=== PATIENT | male | born 1965 | race Caucasian/White ===

== ENCOUNTER → 2016-10-14 | Outpatient (REF) | payer OTHER ==
[2016-10-14 13:38] LABS: MEAN CORPUSCULAR HEMOGLOBIN 33.2 pg (27.0-33.0); MEAN CORPUSCULAR HGB CONC 32.9 g/dl (32.0-36.5); MEAN CORPUSCULAR VOLUME 101.1 fl (80.0-96.0); RED CELL DISTRIBUTION WIDTH 12.6 % (11.5-14.5); WHITE BLOOD COUNT 10.2 K/mm3 (4.0-10.0)
[2016-10-14 14:17] LABS: ALBUMIN/GLOBULIN RATIO 1.18 (1.00-1.93); ALKALINE PHOSPHATASE 76 U/L (45-117); ALT/SGPT 22 U/L (12-78); ANION GAP 5 MEQ/L (8-16); AST/SGOT 11 U/L (15-37); BILIRUBIN,TOTAL 0.2 MG/DL (0.2-1.0); BLOOD UREA NITROGEN 15 MG/DL (7-18); CALCIUM LEVEL 9.6 MG/DL (8.5-10.1); CARBON DIOXIDE LEVEL 32 MEQ/L (21-32); CHLORIDE LEVEL 107 MEQ/L (98-107); CHOLESTEROL LEVEL 183 MG/DL (<200); GLOMERULAR FILTRATION RATE > 60.0 (>56); GLUCOSE, FASTING 100 MG/DL (70-105); POTASSIUM SERUM 4.4 MEQ/L (3.5-5.1); SODIUM LEVEL 144 MEQ/L (136-145); TOTAL PROTEIN 7.4 GM/DL (6.4-8.2); TRIGLYCERIDES LEVEL 104 MG/DL (<150)
== END ==
LOC: M LAB REF 12:41
PROVIDERS: ATTEND Nurse Practitioner Family
DX: Z12.5 Encounter for screening for malignant neoplasm of prostate (principal); I10 Essential (primary) hypertension; R45.86 Emotional lability; E78.5 Hyperlipidemia, unspecified
CPT/HCPCS: 80053; 80061; 82306; 84443; 85027; G0103

== ENCOUNTER 2016-12-06 21:06 | Emergency (ER) | payer OTHER ==
[~2016-12-06] VITALS: Ht 177.8 cm; Wt 70.0 kg
[2016-12-06 22:03] LABS: BASO # 0.1 K/mm3 (0.0-0.2); BASO % 0.8 % (0.0-1.0); EOS # 0.1 K/mm3 (0.0-0.50); LARGE UNSTAINED CELL # 0.1 K/mm3 (0.0-0.4); LARGE UNSTAINED CELL % 1.4 % (0.0-4.0); LYMPH # 2.7 K/mm3 (1.5-4.5); LYMPH % 30.9 % (24.0-44.0); MEAN CORPUSCULAR HEMOGLOBIN 32.1 pg (27.0-33.0); MEAN CORPUSCULAR HGB CONC 33.8 g/dl (32.0-36.5); MEAN CORPUSCULAR VOLUME 95.1 fl (80.0-96.0); MONO # 0.3 K/mm3 (0.0-0.8); MONO % 3.3 % (0.0-5.0); NEUTROPHILS # 5.2 K/mm3 (1.8-7.7); NEUTROPHILS % 62.6 % (36.0-66.0); PLATELET COUNT, AUTOMATED 329 k/mm3 (150-450); RED CELL DISTRIBUTION WIDTH 13.4 % (11.5-14.5); WHITE BLOOD COUNT 8.2 K/mm3 (4.0-10.0)
[2016-12-06 22:33] LABS: ANION GAP 11 MEQ/L (8-16); BLOOD UREA NITROGEN 13 MG/DL (7-18); CALCIUM LEVEL 8.8 MG/DL (8.5-10.1); CARBON DIOXIDE LEVEL 24 MEQ/L (21-32); CHLORIDE LEVEL 105 MEQ/L (98-107); CREATININE FOR GFR 0.86 MG/DL (0.70-1.30); GLOMERULAR FILTRATION RATE > 60.0 (>56); GLUCOSE, FASTING 97 MG/DL (70-105); POTASSIUM SERUM 3.4 MEQ/L (3.5-5.1); SODIUM LEVEL 140 MEQ/L (136-145)
[2016-12-06 22:35] VITALS: BP 133/85
--- NOTE | 2016-12-06 22:50 | REPUSA ---
CT of the head Clinical history: Trauma. Technique: Multiple axial CT images were obtained through the head without administration of contrast . Comparison: 05/04/2016. Findings: The ventricles and sulci are symmetric bilaterally. There is no evidence of acute hemorrhag e or infarct. There is no midline shift, mass effect, or extra-axial fluid collection. The osseous st ructures are unremarkable.. There is a small air fluid level in the right maxillary sinus. The other visualized paranasal sinuses and mastoid air cells are clear. Impression: No acute intracranial abnormality. Right maxillary sinusitis.
--- NOTE | 2016-12-06 22:50 | REPUSA ---
CT of the cervical spine Clinical history: Pain. Technique: Multiple axial CT images were obtained through the cervical spine without administration o f contrast. Coronal and sagittal 3-D reconstructed images were also obtained. Comparison: None. Findings: The cervical vertebral bodies are in satisfactory positioning and alignment. No fractures or dislocat ions are demonstrated. The odontoid process is intact. Intervertebral disc space is narrowed at C6/C7 with small disc osteophyte complex. There is no evidence of facet subluxation. The neural foramen ap pear grossly patent. The cervical cranial junction is intact. The cervical spinal canal demonstrates normal caliber and contour without evidence of spinal stenosis. The surrounding soft tissues are with in normal limits. Impression: No acute fracture or traumatic injury. Mild degenerative disc disease at C6/C7 with small disc osteophyte complex.
--- NOTE | 2016-12-07 07:41 | REP ---
Clinical: Trauma . Comparison: 11/04/2014 . Technique: PA and lateral. Findings: The mediastinum and cardiac silhouette are normal. The lung breaux are clear and without acute consolidation, effusion, or pneumothorax. The skeletal structures are intact and normal. Impression: 1. No acute cardiopulmonary process. Signed by Bandar Lucio MD 12/07/2016 07:32 A
== END 2016-12-06 23:20 | disposition left against medical advice (07) ==
LOC: EDBD 21:06 → M ED 21:06
DX: F10.129 Alcohol abuse with intoxication, unspecified (principal); I10 Essential (primary) hypertension; F17.210 Nicotine dependence, cigarettes, uncomplicated; E78.9 Disorder of lipoprotein metabolism, unspecified

== ENCOUNTER → 2016-12-16 | Outpatient (REF) | payer OTHER | LOC: M LAB REF 18:20 | PROVIDERS: ATTEND Nurse Practitioner Family | DX: M10.071 Idiopathic gout, right ankle and foot (principal) ==

== ENCOUNTER → 2017-05-08 | Outpatient (CLI) | payer OTHER ==
[2017-05-08 10:55] LABS: MEAN CORPUSCULAR HEMOGLOBIN 32.5 pg (27.0-33.0); MEAN CORPUSCULAR HGB CONC 34.3 g/dl (32.0-36.5); MEAN CORPUSCULAR VOLUME 94.7 fl (80.0-96.0); PLATELET COUNT, AUTOMATED 254 10^3/uL (150-450); RED CELL DISTRIBUTION WIDTH 12.6 % (11.5-14.5); WHITE BLOOD COUNT 7.8 10^3/uL (4.0-10.0)
[2017-05-08 11:34] LABS: ALBUMIN 4.1 GM/DL (3.2-5.2); ALBUMIN/GLOBULIN RATIO 1.32 (1.00-1.93); ALKALINE PHOSPHATASE 62 U/L (45-117); ALT/SGPT 26 U/L (12-78); ANION GAP 8 MEQ/L (8-16); AST/SGOT 9 U/L (7-37); BILIRUBIN,TOTAL 0.3 MG/DL (0.2-1.0); BLOOD UREA NITROGEN 22 MG/DL (7-18); CALCIUM LEVEL 9.3 MG/DL (8.5-10.1); CARBON DIOXIDE LEVEL 28 MEQ/L (21-32); CHLORIDE LEVEL 104 MEQ/L (98-107); CHOLESTEROL LEVEL 170 MG/DL (<200); CREATININE FOR GFR 0.77 MG/DL (0.70-1.30); GLOMERULAR FILTRATION RATE > 60.0 (>56); GLUCOSE, FASTING 89 MG/DL (70-105); POTASSIUM SERUM 3.9 MEQ/L (3.5-5.1); SODIUM LEVEL 140 MEQ/L (136-145); TOTAL PROTEIN 7.2 GM/DL (6.4-8.2); TRIGLYCERIDES LEVEL 115 MG/DL (<150)
--- NOTE | 2017-05-08 18:42 | ECGEPIP ---
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
--- NOTE | 2017-05-08 18:57 | REP ---
CHEST X-RAY: CLINICAL: Hypertension. TECHNIQUE: PA and lateral. COMPARISON: 12/06/2016 FINDINGS: Mediastinum and cardiac silhouette are normal. Lung breaux demonstrate chronic stable changes without acute consolidation, effusion or pneumothorax. Skeletal structures are intact. IMPRESSION: Chronic stable pleural parenchymal changes. No acute cardiopulmonary process appreciated. Signed by Bandar Lucio MD 05/09/2017 08:08 A
== END ==
LOC: M LAB 09:51
PROVIDERS: ATTEND Family Medicine
DX: I10 Essential (primary) hypertension (principal)

== ENCOUNTER 2018-05-28 09:41 | Outpatient (RCR) | payer OTHER | END 2018-06-01 | LOC: M PT 09:41 | PROVIDERS: ATTEND Family Medicine | DX: M54.30 Sciatica, unspecified side (principal) ==

== ENCOUNTER 2018-10-08 18:14 | Emergency (ER) | payer OTHER ==
[~2018-10-08] VITALS: Ht 175.3 cm; Wt 79.5 kg
[2018-10-08 19:52] LABS: BASO # 0.1 10^3/uL (0.0-0.2); BASO % 0.7 % (0.0-1.0); EOS # 0.1 10^3/uL (0.0-0.50); EOS % 1.3 % (0.0-3.0); HEMATOCRIT 46.3 % (42.0-52.0); HEMOGLOBIN 15.2 g/dl (13.5-17.5); LYMPH # 2.4 10^3/uL (1.5-4.5); LYMPH % 35.1 % (24.0-44.0); MEAN CORPUSCULAR HEMOGLOBIN 31.7 pg (27.0-33.0); MEAN CORPUSCULAR HGB CONC 32.8 g/dl (32.0-36.5); MEAN CORPUSCULAR VOLUME 96.5 fl (80.0-96.0); MONO # 0.3 10^3/uL (0.0-0.8); MONO % 4.9 % (0.0-5.0); NEUTROPHILS # 3.9 10^3/uL (1.8-7.7); NEUTROPHILS % 57.9 % (36.0-66.0); PLATELET COUNT, AUTOMATED 297 10^3/uL (150-450); WHITE BLOOD COUNT 6.7 10^3/uL (4.0-10.0)
[2018-10-08 20:31] LABS: ALBUMIN 4.4 GM/DL (3.2-5.2); ALT/SGPT 35 U/L (12-78); BILIRUBIN,DIRECT < 0.1 MG/DL (0.0-0.2); BILIRUBIN,TOTAL 0.2 MG/DL (0.2-1.0); BLOOD UREA NITROGEN 14 MG/DL (7-18); CALCIUM LEVEL 8.9 MG/DL (8.5-10.1); CARBON DIOXIDE LEVEL 27 MEQ/L (21-32); CHLORIDE LEVEL 105 MEQ/L (98-107); CPK CREATINE PHOSPHOKINASE 148 U/L (39-308); CREATININE FOR GFR 0.83 MG/DL (0.70-1.30); ETHYL ALCOHOL (ETHANOL) 0.314 % (0.000-0.010); GLOMERULAR FILTRATION RATE > 60.0 (>56); GLUCOSE, FASTING 109 MG/DL (70-100); MB/CK RELATIVE INDEX 1.42 (< OR =4); POTASSIUM SERUM 3.6 MEQ/L (3.5-5.1); SODIUM LEVEL 140 MEQ/L (136-145); TOTAL PROTEIN 7.4 GM/DL (6.4-8.2); TROPONIN I < 0.02 NG/ML (< 0.10)
[2018-10-08 20:52] LABS: AMPHETAMINES LEVEL URINE NEGATIVE (NEGATIVE); BARBITURATES URINE NEGATIVE (NEGATIVE); BENZODIAZEPINES URINE NEGATIVE (NEGATIVE); CANNABINOIDS URINE NEGATIVE (NEGATIVE); COCAINE METABOLITE URINE NEGATIVE (NEGATIVE); METHADONE URINE NEGATIVE (NEGATIVE); OPIATES URINE NEGATIVE (NEGATIVE); PHENCYCLIDINE URINE NEGATIVE (NEGATIVE)
--- NOTE | 2018-10-08 21:02 | REPVR ---
EXAM: CT Head Without Contrast EXAM DATE/TIME: 10/08/2018 7:38 PM CLINICAL HISTORY: 52 years old, male; Signs and symptoms; Altered mental status/memory loss; Confusion or disorientation; Additional info: AMS, scalp contusion that he does not remember trauma TECHNIQUE: Imaging protocol: Axial computed tomography images of the head/brain without contrast. Radiation optimization: All CT scans at this facility use at least one of these dose optimization techniques: automated exposure control; mA and/or kV adjustment per patient size (includes targeted exams where dose is matched to clinical indication); or iterative reconstruction. COMPARISON: CT Head without contrast 12/06/2016 10:22 PM FINDINGS: Brain: There is a subtle linear focus of hyperdensity in the region of a right parietal sulcus on series 20 on image 20. This is likely contributed by artifact, although minimal subarachnoid hemorrhage is within the differential in the setting of trauma. There is a band of mild increased density involving the right parietal and frontal cortices, similar to the prior study and likely contributed by artifact. No intracranial mass effect. The white-nicohlas differentiation is preserved demonstrating no acute territorial type infarct. There is mild prominence of the frontal sulci, compatible with atrophy. Midline shift: There is no midline shift. Ventricles: No ventriculomegaly. Bones/joints: The calvarium demonstrates no evidence for a depressed fracture. Sinuses: Mild mucosal thickening of the left sphenoid sinus and a few ethmoid air cells. Mastoid air cells: No mastoid effusion. Soft tissues: Unremarkable. Vasculature: Intracranial atherosclerosis visualized. Other findings: The study is limited by patient positioning. IMPRESSION: 1. There is a subtle linear focus of hyperdensity in the region of a right parietal sulcus. This is likely contributed by artifact, although minimal subarachnoid hemorrhage is within the differential in the setting of trauma. A follow-up head CT in 12-24 hours is recommended. 2. Mild atrophy. 3. Additional findings described above. Electronically signed by: Brandon Arrieta On 10/08/2018 21:02:03 PM
--- NOTE | 2018-10-08 21:11 | REPVR ---
EXAM: CT Cervical Spine Without Contrast EXAM DATE/TIME: 10/08/2018 7:38 PM CLINICAL HISTORY: 52 years old, male; Injury or trauma; Fall; Initial encounter; Concussion /head injury; Additional info: Head injury ? mechanism TECHNIQUE: Imaging protocol: Axial computed tomography images of the cervical spine without contrast. Coronal and sagittal reformatted images were created and reviewed. Radiation optimization: All CT scans at this facility use at least one of these dose optimization techniques: automated exposure control; mA and/or kV adjustment per patient size (includes targeted exams where dose is matched to clinical indication); or iterative reconstruction. COMPARISON: CT Spine,cervical w/o contrast 12/06/2016 10:22 PM FINDINGS: Vertebrae: No acute cervical spine fracture. Mild retrolisthesis of the right C1 lateral mass relative to C2. The facet alignment is preserved bilaterally. The occipital condyles and C1-C2 articulations appear intact. The cervical lordosis is straightened. Subcentimeter hypodense cystic or lytic lesions are identified within the C6 and C7 vertebral bodies, stable compared to the prior study. Discs/Spinal canal/Neural foramina: Spondylosis is visualized at multiple cervical levels. A decrease of disc height is identified at C5-6 and C6-7, with sclerotic changes within the bone marrow adjacent to the endplates. These findings are most significant at C6-7. There is flattening of the ventral border of the thecal sac at C6-7, without significant overall narrowing. Bilateral neural foraminal narrowing identified at C5-6 and C6-7. Soft tissues: The prevertebral soft tissues are unremarkable. Lungs: Small apical bullae are visualized bilaterally. No pneumothorax, as visualized. IMPRESSION: 1. No acute cervical spine fracture. 2. Mild retrolisthesis of the right C1 lateral mass relative to C2. 3. The cervical lordosis is straightened. 4. Spondylosis is visualized at multiple cervical levels. 5. Bilateral neural foraminal narrowing identified at C5-6 and C6-7. 6. Additional findings described above. Electronically signed by: Brandon Arrieta On 10/08/2018 21:11:08 PM
[2018-10-08] MEDS ORDERED: LORazepam 2 MG/ML VIAL (J2060) IM STA (21:15)
[2018-10-08] MEDS ORDERED: diphenhydrAMINE INJ 50MG/ML VIAL (J1200) IM ONE (21:15)
[2018-10-08] MEDS ORDERED: LORazepam 2 MG/ML VIAL (J2060) IV STA (21:40)
[2018-10-08] MEDS ORDERED: diphenhydrAMINE INJ 50MG/ML VIAL (J1200) IV ONE (21:45)
[2018-10-08 23:16] VITALS: BP 106/67
--- NOTE | 2018-10-09 01:07 | REP ---
Clinical: Altered mental status . Comparison: 05/08/2017 . Findings: The mediastinum and cardiac silhouette are stable and within normal limits for portable technique. The lung breaux demonstrate COPD/emphysematous changes and scattered scarring without acute consolidation, effusion, or pneumothorax. Skeletal structures are intact. Impression: No acute cardiopulmonary process appreciated. Electronically Signed by Bandar Lucio MD 10/09/2018 12:58 A
--- NOTE | 2018-10-09 07:50 | ECGEPIP ---
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
== END 2018-10-08 23:51 | disposition short-term general hospital (02) ==
LOC: EDSEX 18:14 → M ED 18:14 → EDBD 18:14 → M ED 23:51
DX: R41.82 Altered mental status, unspecified (principal); S00.01XA Abrasion of scalp, initial encounter; F10.10 Alcohol abuse, uncomplicated; Y90.1 Blood alcohol level of 20-39 mg/100 ml; E78.5 Hyperlipidemia, unspecified
CPT/HCPCS: 70450; 71045; 72125; 80048; 80076; 80307; 81001; 82140; 82550; 82553; 84443; 85025; 93005; 93041; 94760; 96374; 96375; 99285; G0480; J1200; J2060

== ENCOUNTER → 2018-11-06 | Outpatient (CLI) | payer OTHER ==
[2018-11-06 08:20] LABS: HEMATOCRIT 41.2 % (42.0-52.0); HEMOGLOBIN 13.5 g/dl (13.5-17.5); MEAN CORPUSCULAR HEMOGLOBIN 31.7 pg (27.0-33.0); MEAN CORPUSCULAR HGB CONC 32.8 g/dl (32.0-36.5); MEAN CORPUSCULAR VOLUME 96.7 fl (80.0-96.0); PLATELET COUNT, AUTOMATED 289 10^3/uL (150-450); RED BLOOD COUNT 4.26 10^6/uL (4.30-6.10); WHITE BLOOD COUNT 10.3 10^3/uL (4.0-10.0)
[2018-11-06 08:54] LABS: ALBUMIN 3.7 GM/DL (3.2-5.2); ALT/SGPT 32 U/L (12-78); BILIRUBIN,TOTAL 0.2 MG/DL (0.2-1.0); BLOOD UREA NITROGEN 11 MG/DL (7-18); CALCIUM LEVEL 8.8 MG/DL (8.5-10.1); CARBON DIOXIDE LEVEL 27 MEQ/L (21-32); CHLORIDE LEVEL 109 MEQ/L (98-107); CHOLESTEROL LEVEL 173 MG/DL (<200); CHOLESTEROL RISK RATIO 3.931 (<5); CREATININE FOR GFR 0.76 MG/DL (0.70-1.30); GLOMERULAR FILTRATION RATE > 60.0 (>56); GLUCOSE, FASTING 98 MG/DL (70-100); HDL CHOLESTEROL 44 MG/DL (>40); LDL CHOLESTEROL 70 MG/DL (<100); NON-HDL-C 129 MG/DL; POTASSIUM SERUM 3.7 MEQ/L (3.5-5.1); PROSTATIC SPECIFIC AG MONITOR 1.25 NG/ML (< 4.00); SODIUM LEVEL 144 MEQ/L (136-145); TOTAL PROTEIN 6.6 GM/DL (6.4-8.2); TRIGLYCERIDES LEVEL 293 MG/DL (<150)
--- NOTE | 2018-11-06 12:34 | REP ---
CERVICAL SPINE, EIGHT VIEWS: HISTORY: Neck pain. The cervical spine is visualized from C1 to the C6-7 level in the lateral radiographs. There is no acute fracture or subluxation. The C5-6 and C6-7 intervertebral discs are decreased in height consistent with disc degeneration. There is narrowing of the C5 and C6 neural foramina secondary to uncinate process hypertrophy. IMPRESSION: Degenerative change, as described above. Electronically Signed by Garth Addison MD 11/06/2018 12:36 P
== END ==
LOC: M LAB 07:50
PROVIDERS: ATTEND Family Medicine
DX: I10 Essential (primary) hypertension (principal)

== ENCOUNTER 2018-11-27 09:07 | Outpatient (RCR) | payer OTHER | END 2018-11-29 | LOC: M PT 09:07 | PROVIDERS: ATTEND Family Medicine | DX: M54.2 Cervicalgia (principal) ==

== ENCOUNTER 2018-12-09 09:11 | Outpatient (RCR) | payer OTHER | END 2018-12-30 | LOC: M PT 09:11 | PROVIDERS: ATTEND Family Medicine | DX: Z51.89 Encounter for other specified aftercare (principal); M54.2 Cervicalgia ==

== ENCOUNTER → 2019-01-19 | Outpatient (CLI) | payer OTHER ==
[~2019-01-19] MED LIST: ALBU8.5H INH; ASPI81TA85 PO; CENT1TAB12 PO; DOXY100C37 PO; LOSA50TA5 PO; PRAV40TA2; SYMB16INH PO; TRAM50TA2 PO
--- NOTE | 2019-01-22 10:02 | RADONC ---
RADIATION ONCOLOGY CONSULTATION NOTE DATE: 01/19/2019 CHART NUMBER: [id number] DIAGNOSIS: Basal cell carcinoma of left cheek. ECOG PERFORMANCE STATUS: 0. CONSULTATION NOTE: Mr. Monsalve is a very pleasant 53-year-old white male with the diagnosis of a small nodular basal cell carcinoma involving his left cheek who is presenting to us today for consideration of postoperative radiation therapy in attempt to achieve local control and cure. HISTORY OF PRESENT ILLNESS: The patient was in his usual state of health but found to have a nodular lesion near his nose over his left cheek. On 12/24/2018 the patient underwent excision and pathology revealed a nodular basal cell carcinoma with focally deep positive margin of resection. The patient has done well since surgery and is now being referred to us for consideration of radiation therapy in an attempt to increase the likelihood of achieving local control and cure. ALLERGIES: The patient has no known drug allergies. PAST MEDICAL HISTORY: The patient's past medical history is positive for arthritis, asthma, hypertension and a previous back injury. SOCIAL HISTORY: The patient smokes one pack of cigarettes per day for most of his life. He does not abuse alcohol. FAMILY HISTORY: The patient's family history is unknown. He is adopted. REVIEW OF SYSTEMS: The patient's review of systems is noncontributory. He denies nausea, vomiting, fevers, chills, night sweats, diplopia, headaches, anxiety or depression, anorexia, weight loss, visual disturbances, chest pain, urinary or bowel difficulties, bone pain, or neurological problems. PHYSICAL EXAMINATION: The patient is a well-developed, well-nourished 53-year-old white male in no acute distress. HEENT: Exam is normocephalic, atraumatic. Extraocular movements are intact. There is a small well-healed surgical scar present over his left cheek consistent with his history. There are no other suspicious lesions present over his face, neck or shoulders. There is no palpable preauricular, cervical, supraclavicular, or infraclavicular lymphadenopathy present. His lungs are clear to auscultation and percussion. ASSESSMENT: Mr. Monsalve is presenting to us today for consideration of postoperative radiation therapy for a positive margins status post resection of basal cell carcinoma. Clearly he is a candidate for external beam radiation therapy and I have so informed him. I have discussed with the patient in detail the potential benefits as well as possible acute and chronic sequelae of external beam radiation therapy. We discussed logistics of treatment planning, simulation and subsequent fractionated daily radiation treatments. We did mention further surgery is an option as well. The patient has decided to undergo radiation treatments and I have scheduled him for the next available simulation slot. Once again I thank you for allowing us to participate in the care of this very pleasant gentleman. If I could be of any further assistance or provide you with any information, please feel free to contact me anytime. cc: Yojana Gasca MD
== END ==
LOC: M ONCR 12:48
PROVIDERS: ATTEND Radiology Radiation Oncology
DX: C44.310 Basal cell carcinoma of skin of unspecified parts of face (principal)

== ENCOUNTER 2019-02-24 14:53 | Outpatient (RCR) | payer OTHER ==
--- NOTE | 2019-02-03 08:12 | RADONC ---
RADIATION ONCOLOGY ELECTRON BEAM SETUP: DATE: 02/02/2019 CHART NUMBER: [id number] Mr. Monsalve, with a diagnosis of a basal cell carcinoma involving his left cheek, was set up today for postoperative radiotherapy. At least 1.5 cm was obtained around the entire circumference of the scar and bilateral eye lead mccarthy were placed to protect the eyes. The area to be treated was carefully drawn on the patient and a templated was made in order to make an appropriate shield for treatment. I was there during the entire process and prior to the simulation an immobilization device was fabricated. He had no problems with the entire process and was sent home afterwards in excellent condition. After the treatment planning is complete, the patient will initiate his treatment. STEPHANIE
--- NOTE | 2019-02-17 13:19 | RADONC ---
RADIATION ONCOLOGY PROGRESS NOTE DATE: 02/15/2019 CHART NUMBER: [id number] Mr. Monsalve is presently at a dose of 1000 cGy to his left cheek and is tolerating treatments quite well at this point with no complaints related to radiation therapy. He is having no skin pain. The patient's review of systems is noncontributory. Denies nausea, vomiting, fevers, chills, night sweats, diplopia, headaches, anxiety or depression, anorexia, weight loss, visual disturbances, chest pain, urinary or bowel difficulties, bone pain, or neurological problems. PHYSICAL EXAMINATION: The patient's skin is in excellent condition with no evidence of radiation change present. There is no moist or dry desquamation. The remainder of his physical exam remains unchanged. Mr. Monsalve is tolerating treatments quite well and radiation will continue as scheduled.
--- NOTE | 2019-02-24 07:19 | RADONC ---
RADIATION ONCOLOGY PROGRESS NOTE DATE: 02/22/2019 CHART #: [id number] Mr. Monsalve is presently at a dose of 2250 cGy to his left cheek and is tolerating treatments quite well at this point with no complaints related to his radiation therapy. He is having no skin pain or other problems. REVIEW OF SYSTEMS: The patient's review of systems is noncontributory. Denies nausea, vomiting, fevers, chills, night sweats, diplopia, headaches, anxiety or depression, anorexia, weight loss, visual disturbances, chest pain, urinary or bowel difficulties, bone pain, or neurological problems. PHYSICAL EXAMINATION: The patient's skin is in good condition with no evidence of moist or dry desquamation. The remainder of his physical exam remains unchanged. Mr. Monsalve is tolerating treatments quite well and radiation will continue as scheduled.
== END 2019-03-01 ==
LOC: M ONCR 14:53
PROVIDERS: ATTEND Radiology Radiation Oncology
DX: C44.319 Basal cell carcinoma of skin of other parts of face (principal)

== ENCOUNTER 2019-03-12 15:11 | Outpatient (RCR) | payer OTHER ==
--- NOTE | 2019-03-09 12:28 | RADONC ---
RADIATION ONCOLOGY PROGRESS NOTE DATE: 03/08/2019 CHART NUMBER: [id number] Mr. Monsalve is presently at a dose of 4000 cGy to his left cheek and is tolerating treatments quite well at this point with no complaints related to his radiation therapy. He is having no significant pain or discomfort. The patient's review of systems is noncontributory. He denies nausea, vomiting, fevers, chills, night sweats, diplopia, headaches, anxiety or depression, anorexia, weight loss, visual disturbances, chest pain, urinary or bowel difficulties, bone pain, or neurological problems. PHYSICAL EXAMINATION: The patient's skin is in excellent condition with only some slight radiation tanning present in the treatment field. There is no evidence of moist or dry desquamation. The remainder of his physical exam remains unchanged. Mr. Monsalve is tolerating treatments quite well and radiation will continue as scheduled.
--- NOTE | 2019-03-15 08:00 | RADONC ---
RADIATION ONCOLOGY TREATMENT SUMMARY DATE: 03/12/2019 CHART NUMBER: [id number] DIAGNOSIS: Basal cell carcinoma of left cheek. ECOG PERFORMANCE STATUS: 0. TREATMENT SUMMARY: Mr. Monsalve is a 53-year-old white male with the diagnosis of a small nodular basal cell carcinoma involving his left cheek who presented to us for consideration of postoperative radiation therapy in an attempt to achieve local control and cure. We treated the patient to his left cheek for a total dose of 5000 cGy delivered in 20 fractions of 250 cGy each over 30 elapsed days from 02/10/2019 through 03/12/2019. The patient's cheek was treated on a linear accelerator utilizing a 9 MV electron beam prescribed to the 90% isodose line via a en face technique. 1/2 cm tissue equivalent bolus was placed over the field. Mr. Monsalve tolerated his treatments quite well and was able complete therapy as prescribed without interruption. I have scheduled the patient to see me again in 1 month for further followup. He will also continue to be followed by his other physicians as well. cc: Yojana Gasca MD
== END 2019-04-01 ==
LOC: M ONCR 15:11
PROVIDERS: ATTEND Radiology Radiation Oncology
DX: C44.319 Basal cell carcinoma of skin of other parts of face (principal)

== ENCOUNTER → 2019-04-21 | Outpatient (CLI) | payer OTHER ==
--- NOTE | 2019-04-23 13:17 | RADONC ---
RADIATION ONCOLOGY FOLLOWUP NOTE DATE OF SERVICE: 04/21/2019 CHART #: [id number] DIAGNOSIS: Basal cell carcinoma of left cheek. ECOG PERFORMANCE STATUS: 0. FOLLOWUP NOTE: Mr. Monsalve is a 53-year-old white male with the diagnosis of a small nodular basal cell carcinoma involving his left cheek who is presenting to us today for routine followup visit 1 month post completion of external beam radiation therapy. The patient presents today reporting that he is doing quite well with no complaints at this time related to his radiation therapy or disease. He has absolutely no pain or discomfort. REVIEW OF SYSTEMS: The patient's review of systems is noncontributory. Denies nausea, vomiting, fevers, chills, night sweats, diplopia, headaches, anxiety or depression, anorexia, weight loss, visual disturbances, chest pain, urinary or bowel difficulties, bone pain, or neurological problems. PHYSICAL EXAMINATION: The patient's skin in the treated field is in excellent condition with no evidence of moist or dry desquamation. There is no evidence of radiation change present. There is no nodularity. There are no other suspicious lesions present over the patients face, neck or shoulders. There is no palpable preauricular, cervical, supraclavicular, infraclavicular lymphadenopathy present. Mr. Monsalve tolerated his treatments quite well and is now clinically MAURISIO with no evidence of disease. I have discharged this patient from my followup except on a p.r.n. basis. He will continue his close followup with his referring physician Dr. Yojana Gasca.
== END ==
LOC: M ONCR 15:12
PROVIDERS: ATTEND Radiology Radiation Oncology
DX: C44.309 Unspecified malignant neoplasm of skin of other parts of face (principal)

== ENCOUNTER 2019-05-01 13:15 | Emergency (ER) | payer OTHER ==
[~2019-05-01] VITALS: Ht 172.7 cm; Wt 85.1 kg
[2019-05-01] MEDS ORDERED: CLIN150C14 PO (15:05)
[2019-05-01 15:10] VITALS: BP 122/74
== END 2019-05-01 15:14 | disposition home or self-care (01) ==
LOC: M ED 13:15
DX: L03.011 Cellulitis of right finger (principal); I10 Essential (primary) hypertension; J44.9 Chronic obstructive pulmonary disease, unspecified; E78.5 Hyperlipidemia, unspecified; F17.200 Nicotine dependence, unspecified, uncomplicated; Z79.899 Other long term (current) drug therapy; Z79.82 Long term (current) use of aspirin; Z85.828 Personal history of other malignant neoplasm of skin; Z92.3 Personal history of irradiation; Z88.8 Allergy status to other drugs, medicaments and biological substances

== ENCOUNTER → 2020-05-23 | Outpatient (CLI) | payer OTHER ==
[~2020-05-23] MED LIST changes: -ASPI81TA85 PO; +ASPI81TA86 PO; +CLIN150C14 PO
--- NOTE | 2020-05-23 09:53 | REP ---
INDICATION: HTN, FATIGUE LABS 1ST, EKG 2ND, XRAYS 3RD COMPARISON: 05/08/2017 TECHNIQUE: PA and lateral. FINDINGS: The mediastinum and cardiac silhouette are normal. The lung breaux are clear and without acute consolidation, effusion, or pneumothorax. The skeletal structures demonstrate stable degenerative changes primarily involving the mid to lower thoracic spine. IMPRESSION: No acute cardiopulmonary process. <Electronically signed by Bandar Lucio > 05/23/20 0949
--- NOTE | 2020-05-23 09:55 | REP ---
INDICATION: HTN, FATIGUE LABS 1ST, EKG 2ND, XRAYS 3RD COMPARISON: None. TECHNIQUE: Four views of the right hemithorax. FINDINGS: Multiple views of the right hemithorax demonstrates subacute healing posterolateral 9th rib fracture. IMPRESSION: Subacute, healing posterolateral 9th rib fracture. <Electronically signed by Bandar Lucio > 05/23/20 0970
[2020-05-23 11:13] LABS: HEMATOCRIT 43.1 % (42.0-52.0); HEMOGLOBIN 14.2 g/dl (13.5-17.5); MEAN CORPUSCULAR HEMOGLOBIN 31.1 pg (27.0-33.0); MEAN CORPUSCULAR HGB CONC 32.9 g/dl (32.0-36.5); MEAN CORPUSCULAR VOLUME 94.5 fl (80.0-96.0); PLATELET COUNT, AUTOMATED 303 10^3/uL (150-450); RED BLOOD COUNT 4.56 10^6/uL (4.30-6.10); WHITE BLOOD COUNT 8.4 10^3/uL (4.0-10.0)
[2020-05-23 11:45] LABS: ALT/SGPT 47 U/L (12-78); BILIRUBIN,TOTAL 0.4 MG/DL (0.2-1.0); BLOOD UREA NITROGEN 12 MG/DL (7-18); CALCIUM LEVEL 9.3 MG/DL (8.5-10.1); CARBON DIOXIDE LEVEL 28 MEQ/L (21-32); CHLORIDE LEVEL 101 MEQ/L (98-107); CHOLESTEROL LEVEL 186 MG/DL (<200); CHOLESTEROL RISK RATIO 4.133 (<5); CREATININE FOR GFR 0.91 MG/DL (0.70-1.30); GLOMERULAR FILTRATION RATE > 60.0 (>56); GLUCOSE, FASTING 90 MG/DL (70-100); HDL CHOLESTEROL 45 MG/DL (>40); LDL CHOLESTEROL 111 MG/DL (<100); NON-HDL-C 141 MG/DL; POTASSIUM SERUM 3.9 MEQ/L (3.5-5.1); PROSTATIC SPECIFIC AG MONITOR 1.26 NG/ML (< 4.00); SODIUM LEVEL 137 MEQ/L (136-145); TOTAL PROTEIN 7.3 GM/DL (6.4-8.2); TRIGLYCERIDES LEVEL 152 MG/DL (<150)
[2020-05-23 11:46] LABS: TESTOSTERONE 384 NG/DL (241-827)
[2020-05-23 15:39] LABS: HEMOGLOBIN A1c 5.7 %
--- NOTE | 2020-05-24 07:36 | ECGEPIP ---
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
== END ==
LOC: M LAB 08:54
PROVIDERS: ATTEND Family Medicine
DX: E03.9 Hypothyroidism, unspecified (principal); I10 Essential (primary) hypertension; R53.83 Other fatigue

== ENCOUNTER → 2020-10-13 | Outpatient (REF) | payer OTHER ==
[~2020-10-13] MED LIST changes: -CLIN150C14 PO; +CLIN150C15 PO
== END ==
LOC: M LAB REF 16:36
PROVIDERS: ATTEND Dermatology
DX: D48.4 Neoplasm of uncertain behavior of peritoneum (principal); L72.0 Epidermal cyst

== ENCOUNTER → 2020-10-26 | Outpatient (REF) | payer OTHER | LOC: M LAB REF 09:05 | PROVIDERS: ATTEND Dermatology | DX: C44.99 Other specified malignant neoplasm of skin, unspecified (principal) ==

== ENCOUNTER → 2020-12-11 | Outpatient (CLI) | payer OTHER ==
[~2020-12-11] MED LIST changes: -CLIN150C15 PO; +CLIN150C17 PO; +DOXY-443 PO; -DOXY100C37 PO
== END ==
LOC: M ONCR 13:34
PROVIDERS: ATTEND General Practice
DX: C44.40 Unspecified malignant neoplasm of skin of scalp and neck (principal); F17.210 Nicotine dependence, cigarettes, uncomplicated; I10 Essential (primary) hypertension; J45.909 Unspecified asthma, uncomplicated; M12.9 Arthropathy, unspecified; Z85.828 Personal history of other malignant neoplasm of skin; Z92.3 Personal history of irradiation

== ENCOUNTER 2020-12-21 14:00 | Outpatient (RCR) | payer OTHER ==
[~2020-12-21 14:00] MED LIST changes: +CLIN150C15 PO; -CLIN150C17 PO; -DOXY-443 PO; +DOXY1CAP62 PO
== END 2020-12-30 ==
LOC: M ONCR 14:00
PROVIDERS: ATTEND General Practice
DX: C44.49 Other specified malignant neoplasm of skin of scalp and neck (principal)

== ENCOUNTER → 2021-03-01 | Outpatient (RCR) | payer OTHER ==
[~2021-03-01] MED LIST changes: -CLIN150C15 PO; +CLIN150C17 PO
== END ==
LOC: M ONCR 02-15 09:25
PROVIDERS: ATTEND General Practice
DX: C44.49 Other specified malignant neoplasm of skin of scalp and neck (principal)

== ENCOUNTER 2021-03-30 12:10 | Outpatient (RCR) | payer OTHER ==
[~2021-03-30 12:10] MED LIST changes: +DOXY-443 PO; -DOXY1CAP62 PO
== END 2021-04-01 ==
LOC: M ONCR 12:10
PROVIDERS: ATTEND General Practice
DX: C44.49 Other specified malignant neoplasm of skin of scalp and neck (principal); C44.309 Unspecified malignant neoplasm of skin of other parts of face

== ENCOUNTER 2021-04-05 12:12 | Outpatient (RCR) | payer OTHER | END 2021-05-01 | LOC: M ONCR 12:12 | PROVIDERS: ATTEND General Practice | DX: C44.49 Other specified malignant neoplasm of skin of scalp and neck (principal); C44.309 Unspecified malignant neoplasm of skin of other parts of face ==

== ENCOUNTER → 2022-01-16 | Outpatient (CLI) | payer OTHER ==
[2022-01-16 08:53] LABS: HEMOGLOBIN 15.2 g/dl (13.5-17.5); MEAN CORPUSCULAR HEMOGLOBIN 30.5 pg (27.0-33.0); MEAN CORPUSCULAR VOLUME 92.2 fl (80.0-96.0); PLATELET COUNT, AUTOMATED 293 10^3/uL (150-450); RED BLOOD COUNT 4.99 10^6/uL (4.30-6.10); WHITE BLOOD COUNT 8.8 10^3/uL (4.0-10.0)
[2022-01-16 09:22] LABS: HEMOGLOBIN A1c 5.7 %
[2022-01-16 09:23] LABS: ALBUMIN 4.4 GM/DL (3.2-5.2); ALT/SGPT 48 U/L (12-78); BILIRUBIN,TOTAL 0.5 MG/DL (0.2-1.0); BLOOD UREA NITROGEN 15 MG/DL (7-18); CALCIUM LEVEL 10.1 MG/DL (8.5-10.1); CARBON DIOXIDE LEVEL 29 MEQ/L (21-32); CHLORIDE LEVEL 100 MEQ/L (98-107); CHOLESTEROL LEVEL 193 MG/DL (<200); CHOLESTEROL RISK RATIO 4.195 (<5); CREATININE FOR GFR 0.86 MG/DL (0.70-1.30); GLOMERULAR FILTRATION RATE > 60.0 (>56); GLUCOSE, FASTING 106 MG/DL (70-100); HDL CHOLESTEROL 46 MG/DL (>40); LDL CHOLESTEROL 110 MG/DL (<100); NON-HDL-C 147 MG/DL; POTASSIUM SERUM 3.9 MEQ/L (3.5-5.1); PROSTATIC SPECIFIC AG MONITOR 1.92 NG/ML (< 4.00); SODIUM LEVEL 135 MEQ/L (136-145); TOTAL PROTEIN 7.7 GM/DL (6.4-8.2); TRIGLYCERIDES LEVEL 184 MG/DL (<150)
[2022-01-16 10:09] LABS: TOTAL 25(OH) VITAMIN D 44.2 NG/ML (30.0-100.0)
[2022-01-16 10:20] LABS: TESTOSTERONE 322 NG/DL (241-827)
== END ==
LOC: M LAB 08:00
PROVIDERS: ATTEND Family Medicine
DX: I10 Essential (primary) hypertension (principal); R53.83 Other fatigue; E03.9 Hypothyroidism, unspecified

== ENCOUNTER → 2023-03-14 | Outpatient (REF) | payer OTHER ==
[2023-03-14 12:19] LABS: BASO # 0.1 10^3/uL (0.0-0.2); BASO % 0.7 % (0.0-1.0); EOS # 0.2 10^3/uL (0.0-0.5); EOS % 2.9 % (0.0-3.0); HEMATOCRIT 42.8 % (42.0-52.0); HEMOGLOBIN 14.4 g/dl (13.5-17.5); LYMPH # 2.8 10^3/uL (1.5-5.0); LYMPH % 38.2 % (24.0-44.0); MEAN CORPUSCULAR HEMOGLOBIN 31.7 pg (27.0-33.0); MEAN CORPUSCULAR HGB CONC 33.6 g/dl (32.0-36.5); MEAN CORPUSCULAR VOLUME 94.3 fl (80.0-96.0); MONO # 0.4 10^3/uL (0.0-0.8); MONO % 5.9 % (2.0-8.0); NEUTROPHILS # 3.8 10^3/uL (1.5-8.5); PLATELET COUNT, AUTOMATED 299 10^3/uL (150-450); RED BLOOD COUNT 4.54 10^6/uL (4.30-6.10); WHITE BLOOD COUNT 7.3 10^3/uL (4.0-10.0)
[2023-03-14 12:44] LABS: HEMOGLOBIN A1c 5.1 % (4.0-6.0)
[2023-03-14 12:50] LABS: ALBUMIN 4.3 G/DL (3.2-5.2); ALKALINE PHOSPHATASE 63 U/L (46-116); ALT/SGPT 28 U/L (7.0-40); AST/SGOT 13 U/L (<34); BILIRUBIN,TOTAL 0.3 MG/DL (0.3-1.2); BLOOD UREA NITROGEN 16 MG/DL (9-23); CALCIUM LEVEL 9.2 MG/DL (8.5-10.1); CARBON DIOXIDE LEVEL 29 MMOL/L (20-31); CHLORIDE LEVEL 102 MMOL/L (98-107); CHOLESTEROL LEVEL 161 MG/DL (<200); CHOLESTEROL RISK RATIO 2.93 (<5); CREATININE FOR GFR 0.74 MG/DL (0.70-1.30); GLOMERULAR FILTRATION RATE > 60.0 (>56); GLUCOSE, FASTING 103 MG/DL (60-100); HDL CHOLESTEROL 54.9 MG/DL (>40); LDL CHOLESTEROL 88.7 MG/DL (<100); NON-HDL-C 106.1 MG/DL; POTASSIUM SERUM 3.7 MMOL/L (3.5-5.1); SODIUM LEVEL 139 MMOL/L (136-145); THYROID STIMULATING HORMONE 1.987 uIU/ML (0.55-4.78); TOTAL 25(OH) VITAMIN D 52.3 NG/ML (20.0-100.0); TOTAL PROTEIN 7.1 G/DL (5.7-8.2); TRIGLYCERIDES LEVEL 87 MG/DL (<150)
== END ==
LOC: M LAB REF 11:15
PROVIDERS: ATTEND Nurse Practitioner Family
DX: E55.9 Vitamin D deficiency, unspecified (principal); E66.3 Overweight; R53.83 Other fatigue; Z11.9 Encounter for screening for infectious and parasitic diseases, unspecified

== ENCOUNTER → 2023-09-25 | Outpatient (CLI) | payer OTHER | LOC: M RAD 07:57 | PROVIDERS: ATTEND Nurse Practitioner Family | DX: Z12.2 Encounter for screening for malignant neoplasm of respiratory organs (principal); F17.200 Nicotine dependence, unspecified, uncomplicated; R91.8 Other nonspecific abnormal finding of lung field; J84.10 Pulmonary fibrosis, unspecified ==

== ENCOUNTER → 2024-12-06 | Outpatient (REF) | payer OTHER ==
[~2024-12-06] MED LIST changes: +DOXY-441 PO; -DOXY-443 PO; -PRAV40TA2; +PRAV40TA85
[2024-12-06 18:31] LABS: BASO # 0.1 10^3/uL (0.0-0.2); BASO % 0.8 % (0.0-1.0); EOS # 0.2 10^3/uL (0.0-0.5); EOS % 2.7 % (0.0-3.0); LYMPH # 3.1 10^3/uL (1.5-5.0); LYMPH % 38.8 % (24.0-44.0); MONO # 0.5 10^3/uL (0.0-0.8); MONO % 6.0 % (2.0-8.0); NEUTROPHILS # 4.0 10^3/uL (1.5-8.5); NEUTROPHILS % 51.3 % (36.0-66.0); PLATELET COUNT, AUTOMATED 306 10^3/uL (150-450)
[2024-12-06 18:38] LABS: ALT/SGPT 27 U/L (7.0-40); AST/SGOT 18 U/L (<34); CALCIUM LEVEL 9.4 MG/DL (8.5-10.1); CARBON DIOXIDE LEVEL 30 MMOL/L (20-31); CHLORIDE LEVEL 100 MMOL/L (98-107); CHOLESTEROL LEVEL 170 MG/DL (<200); CHOLESTEROL RISK RATIO 2.85 (<5); CREATININE FOR GFR 0.81 MG/DL (0.70-1.30); GLOMERULAR FILTRATION RATE > 90.0 (>56); LDL CHOLESTEROL 88.4 MG/DL (<100); NON-HDL-C 110.4 MG/DL; POTASSIUM SERUM 3.5 MMOL/L (3.5-5.1); SODIUM LEVEL 142 MMOL/L (136-145); TRIGLYCERIDES LEVEL 110 MG/DL (<150)
[2024-12-06 18:44] LABS: ESTIMATED AVERAGE GLUCOSE 111.0 MG/DL (60-110)
== END ==
LOC: M SFHCLERA 10:13
PROVIDERS: ATTEND Internal Medicine
DX: I10 Essential (primary) hypertension (principal)

== ENCOUNTER → 2024-12-22 | Outpatient (CLI) | payer OTHER ==
[~2024-12-22] MED LIST changes: +GASTROGRAFIN SOLUTION 30 ML As Ordered ONE; +ISOVUE-370 76% 100 ML VIAL As Ordered ONE
== END ==
LOC: M RAD 13:03
PROVIDERS: ATTEND Surgery
DX: K43.9 Ventral hernia without obstruction or gangrene (principal); I25.10 Atherosclerotic heart disease of native coronary artery without angina pectoris
CPT/HCPCS: 74177; Q9963; Q9967